=== PATIENT | male | born 1985 | race Caucasian/White ===

== ENCOUNTER 2020-01-04 00:55 | Emergency (ER) | payer SELFPAY ==
[2020-01-04] MEDS ORDERED: AMIODARONE 150 MG/3 ML INJ IV ONE (00:56)
[2020-01-04] MEDS ORDERED: EPINEPHrine 1:10,000 1 MG/10 ML SYRINGE ONE (00:56)
[2020-01-04] MEDS ORDERED: SODIUM BICARB 8.4% 50 MEQ/50 ML SYRINGE IV ONE (00:56)
--- NOTE | 2020-01-04 01:20 | Emergency Department Report ---
ED CPR HPI - General Stated Complaint: CARDIAC ARREST Time Seen by Provider: 01/04/20 00:55 Source: family, EMS Mode of arrival: Stretcher Limitations: Altered Mental Status, Physical Limitation, Other - History of Present Illness Initial Comments: Patient is a 34-year-old male that presents emergency room with cardiac arrest. Patient arrived via EMS. Report received from EMS. EMS states they have shocked the patient 4 times and given multiple rounds of medication to include epi and bicarb. No return of circulation in the field. Per EMS the family states he has a heart condition and was having shortness of breath today. Patient was intubated by EMS. Bilateral breath sounds noted by EMS and on my initial exam. MD Complaint: stopped breathing, collapsed during rest Initial Findings in the Field: unresponsive, no respirations, no pulse, VTACH/VFIB ROSC in the Field: No Associated Injuries: No Associated Symptoms: shortness of breath Treatments Prior to Arrival: intubation, BMV, chest compressions, defribrillated shocks #, epinephrine mgs #, sodium bicarbonate - Related Data Home Medications Medication Instructions Recorded Confirmed Last Taken Azithromycin [Zithromax] 250 mg PO QDAY 11/03/14 11/03/14 11/03/14 Ibuprofen [Motrin] 800 mg PO TID PRN 11/03/14 11/03/14 11/03/14 Loratadine (Nf) [Claritin] 10 mg PO DAILY 11/03/14 11/03/14 11/03/14 Previous Rx's Medication Instructions Recorded Last Taken Type Acetaminophen/Codeine 1 tab PO Q6H PRN #14 tab 11/04/14 Unknown Rx [Acetaminophen-Codeine #3 TAB] Promethazine Dm (Nf) [Phenergan Dm 5 ml PO Q6H PRN #60 ml 11/04/14 Unknown Rx 6.25/15 mg 5 ml] Promethazine [Phenergan] 25 mg PO Q6H PRN #14 tablet 11/04/14 Unknown Rx Allergies Allergy/AdvReac Type Severity Reaction Status Date / Time Penicillins Allergy Swelling Verified 11/03/14 22:36 ED Review of Systems ROS: Stated complaint: CARDIAC ARREST Other details as noted in HPI Comment: Unobtainable due to pts medical conditions ED Past Medical Hx - Past Medical History Previous Medical History?: Yes Hx Hypertension: Yes Hx Heart Attack/AMI: Yes Hx Congestive Heart Failure: Yes - Surgical History Past Surgical History?: No - Family History Family history: no significant - Social History Smoking Status: Never Smoker Substance Use Type: None - Medications Home Medications: Home Medications Medication Instructions Recorded Confirmed Last Taken Type Azithromycin [Zithromax] 250 mg PO QDAY 11/03/14 11/03/14 11/03/14 History Ibuprofen [Motrin] 800 mg PO TID PRN 11/03/14 11/03/14 11/03/14 History Loratadine (Nf) [Claritin] 10 mg PO DAILY 11/03/14 11/03/14 11/03/14 History Acetaminophen/Codeine 1 tab PO Q6H PRN #14 tab 11/04/14 Unknown Rx [Acetaminophen-Codeine #3 TAB] Promethazine Dm (Nf) [Phenergan Dm 5 ml PO Q6H PRN #60 ml 11/04/14 Unknown Rx 6.25/15 mg 5 ml] Promethazine [Phenergan] 25 mg PO Q6H PRN #14 tablet 11/04/14 Unknown Rx ED Physical Exam - General Limitations: Physical Limitation, Other General appearance: obtunded - Head Head exam: Present: atraumatic, normocephalic - Eye Eye exam: Present: other (Pupils fixed and dilated) - ENT ENT exam: Present: other (ET tube in place) - Neck Neck exam: Present: normal inspection - Respiratory Respiratory exam: Present: decreased breath sounds, other (Placement of ET tube verified with bilateral breath sounds.) - Cardiovascular Cardiovascular Exam: Present: other (No pulse noted) - GI/Abdominal GI/Abdominal exam: Present: soft, distended, other (No breath sounds noted over the epigastrium.) - Rectal Rectal exam: Present: deferred - Extremities Exam Extremities exam: Present: normal inspection (Except for bilateral lower extre mity edema, anasarca. Left lower extremity IO noted in anterior tibia) - Skin Skin exam: Present: warm, dry ED Course - Reevaluation(s) Reevaluation #1: Patient done. Patient's pupils are fixed and dilated. Report received from EMS. Code continued. ET tube placement verified with bilateral breath sounds. No epigastric sounds noted. 01/04/20 00:55 Reevaluation #2: Resuscitation efforts terminated due to no signs of life, no pulse, no cardiac activity noted on ultrasound. See code note. Code ran in accordance with ACLS guidelines. 01/04/20 01:10 Reevaluation #3: Family meeting done. Family states that the patient complained of shortness of breath throughout the entire day. Family states patient had a history of congestive heart failure and MIs. Family states the patient is on hospice for advanced CHF. family support given. 01/04/20 01:20 = ED Medical Decision Making - Medical Decision Making Patient is a 34-year-old male that presents emergency room in cardiac arrest. Report from received from EMS. Patient's code ran in accordance with ACLS guidelines. Patient resuscitation efforts were terminated due to no signs of life. Ultrasound verified no cardiac motion. Family support given. Family states the patient is on hospice for CHF. - Differential Diagnosis Cardiac arrest. MT. PE Critical Care Time: Yes Critical care time in (mins) excluding proc time.: 35 Critical care attestation.: If time is entered above; I have spent that time in minutes in the direct care of this critically ill patient, excluding procedure time. Critical Care Time: 35 minutes ED Disposition Clinical Impression: Cardiac arrest Disposition: DC-20 Is pt being admited?: No Does the pt Need Aspirin: No Condition: Critical Time of Disposition: 01:45
== END 2020-01-04 04:45 ==
LOC: ED 00:55
DX: I46.9 Cardiac arrest, cause unspecified (principal); I11.0 Hypertensive heart disease with heart failure; I50.9 Heart failure, unspecified
CPT/HCPCS: 92950; 99291; J0171; J0282